=== PATIENT | male | born 2000 | race Caucasian/White ===

== ENCOUNTER 2021-04-23 23:31 | Emergency (ER) | payer OTHER, SELFPAY ==
--- NOTE | ~2021-04-23 | XR_ITS ---
EXAMINATION: 1. RIGHT ANKLE. 2. RIGHT FOOT. CLINICAL INFORMATION: Pain. COMPARISON: Right foot 12/31/2015. Right ankle 07/29/2013 TECHNIQUE: 1. Right ankle. 3 views 2. Right foot. 3 views FINDINGS: 1. Right ankle. No fracture. No dislocation. Ankle mortise is congruent. No soft tissue abnormality. 2. Right foot. No fracture. No dislocation. Joint spaces are normal. No soft tissue abnormality. XR/XR ankle RT min 3V IMPRESSION: 1. Right ankle. Normal right ankle. 2. Right foot. Normal right foot.
--- NOTE | ~2021-04-23 | XR_ITS ---
EXAMINATION: 1. RIGHT ANKLE. 2. RIGHT FOOT. CLINICAL INFORMATION: Pain. COMPARISON: Right foot 12/31/2015. Right ankle 07/29/2013 TECHNIQUE: 1. Right ankle. 3 views 2. Right foot. 3 views FINDINGS: 1. Right ankle. No fracture. No dislocation. Ankle mortise is congruent. No soft tissue abnormality. 2. Right foot. No fracture. No dislocation. Joint spaces are normal. No soft tissue abnormality. XR/XR foot RT min 3V IMPRESSION: 1. Right ankle. Normal right ankle. 2. Right foot. Normal right foot.
[2021-04-23 23:34] VITALS: BP 150/78; PULSE 71; RESP 18; TEMP 37.1; O2SAT 98; BMI 25.1
--- NOTE | 2021-04-23 23:55 | ED_ITS ---
HPI - Extremity Injury (Lower) General Chief Complaint: Extremity Injury, Lower Stated Complaint: right foot pain Time Seen by Provider: 04/23/21 23:54 Source: patient Mode of arrival: ambulatory Limitations: no limitations History of Present Illness HPI Narrative: This is a 20-year-old male no known medical history presents to the emergency department with pain to the right foot status post kicking a punching bag [place] an arcade, patient tells me that he could take to the middle part that connects the punching bag to the ceiling. He reports 7/10 pain to the top of his foot, he tells me is worse with movement better at rest. He also tells me the pain is worse when he walks. He is able to bear weight however he tells me because of the pain he is limping. 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 Sensory and motor intact per patient. He also reports a small bruise to the ventral aspect of foot. This occurred just prior to his arrival. MD complaint: foot injury (Right foot ) Onset (ago): minute(s) (50) Type of Injury: blunt Place: other (Occurred at an arcade.) Severity: moderate Severity scale (1-10): 7 Relieving factors: immobilization Exacerbating factors: movement and palpation Context: direct blow (With the metal part of a punching bag.) Associated symptoms: swelling and other (small bruise.) Other symptoms: none Related Data Allergies Allergy/AdvReac Type Severity Reaction Status Date / Time No Known Allergies Allergy Verified 04/23/21 23:34 [No Known Allergies*] Review of Systems Review of Systems: Constitutional : No Weight loss, No Fever, No Chills, No Fatigue, No Malaise ENT/Mouth : No sore throat, No Rhinorrhea Eyes: No Eye Pain, No Swelling, No Redness Cardiovascular : No Chest Pain, No SOB, No Dyspnea on Exertion, No Orthopnea, No Edema, No Palpitations Respiratory : No Cough, No Sputum, No Wheezing Gastrointestinal : No Nausea, No Vomiting, No Diarrhea, No Constipation, No abdominal Pain, No Hematochezia, No Melena Genitourinary : No Dysuria, No Urinary Frequency, No Hematuria, Musculoskeletal : + joint pain, No Myalgias, + Joint Swelling Skin : No Skin Lesions, No rash Neuro : No Weakness, No Numbness, No Dizziness, No Headache All other systems reviewed and are negative Yes all other systems are reviewed and are negative [facility] Past Medical History Attestation statement: The following information was validated with the patient. Source: old records reviewed and nursing notes reviewed Medical History Seizure disorder Social History Social History Advance Directives: No Physical Exam Vital Signs: Vital Signs: Last Vital Signs Temp 98.8 F 04/23/21 23:34 Pulse 71 04/23/21 23:34 Resp 18 04/23/21 23:34 BP 150/78 H 04/23/21 23:34 Pulse Ox 98 04/23/21 23:34 BMI result Body Mass Index 25.1 Vital signs stable. Appearance: Alert.? Oriented X3.? No acute distress.? Head: Normocephalic, atraumatic, no step-offs or deformities Eyes: Pupils equal, round and reactive to light.? ENT: Pharynx normal.? Neck: Normal inspection.? Neck supple.? CVS: Normal heart rate and rhythm.? Pulses normal.? Respiratory: No respiratory distress.? Breath sounds normal.? Abdomen: Soft and nontender.? Skin: Skin warm and dry.? Normal skin color.? Normal skin turgor.? Extremities: 5/5 strength to bilateral upper and lower extremities + pain to palpation right metatarsal, there is a small area of ecchymosis the 1st r. meta tarsal. Sensation and motor intact to bilateral. Left foot. Patient able to ambulate. No step-offs or deformities, no evident ligament or tendon involvement. Back: No midline tenderness, no C-spine tenderness, full range of motion, no CVA tenderness bilaterally Neuro: Oriented X 3.? No motor deficit.? No sensory deficit. Course Reevaluation(s) Reevaluation #1: X-ray of right foot and ankle with no acute fractures or dislocations. No soft tissue swelling. Have advised patient to follow-up with orthopedics if symptoms do not improve within a week or 2. I have advised patient to take ibuprofen every 6 hours, Tylenol every 4 as needed for pain. Have advised him to follow-up with his PCP. I have educated him on rice. Comfortable with discharge. Time: 00:01 MDM - Extremity Injury (Lower) MDM Narrative Medical decision making narrative: [id number] 20-year-old male presents the emergency department with right foot pain status post kicking in the metal part of punching bag just [place] to his [place]. Physical examination w/pain to palpation right metatarsal, there is a small area of ecchymosis the 1st r. meta tarsal. Sensation and motor intact to bilateral. Left foot. Patient able to ambulate. No step-offs or deformities, no evident ligament or tendon involvement. Plan at this time is to obtain plain films. Medical Records Attestation: I reviewed the patient's medical records. Lab Data Attestation: I reviewed the patient's lab results. Imaging Data Right foot and ankle x-ray.: Attestation: I personally reviewed and interpreted this imaging study as follows: Radiologist's impression: FINDINGS: 1. Right ankle. No fracture. No dislocation. Ankle mortise is congruent. No soft tissue abnormality. 2. Right foot. No fracture. No dislocation. Joint spaces are normal. No soft tissue abnormality.? XR/XR ankle RT min 3V IMPRESSION: ? 1. Right ankle. Normal right ankle. 2. Right foot. Normal right foot.? Critical Care Time Critical Care Time Critical Care Time: No Discharge Plan Discharge Clinical Impression: Acute foot pain Patient Disposition: Home, Self-Care Instructions: R.I.C.E. Treatment (ED) Additional Instructions: Take your medications as prescribed. If you were prescribed antibiotics today, it is important that you take your medication to their entirety, do not skip any doses, do not finish them early. Follow-up with your primary care provider this week. Follow-up with orthopedics if her symptoms do not improve within the next week or 2. Return to the emergency department with new or worsening symptoms. In case of emergency call 911 Take ibuprofen every 6 hours, Tylenol every 4 hours as needed for pain. Rest, ice, compress, elevate. Referrals: Rahul Davidson DO [Primary Care Provider] - 2 days Al Mitchell MD [Physician] - 2 weeks Stand Alone Forms: Work/School Release
== END 2021-04-24 00:24 | disposition home or self-care (01) ==
PROVIDERS: Emergency Provider Internal Medicine; PCP Family Medicine
DX: M79.671 Pain in right foot (principal); M25.571 Pain in right ankle and joints of right foot
CPT/HCPCS: 73610; 73630; 99283